=== PATIENT | female | born 1985 | race Caucasian/White ===

== ENCOUNTER → 2022-04-13 | Outpatient (REF) | payer OTHER ==
[~2022-04-13] MED LIST: IBUP200C25 PO; IRON65TA PO; MIRA3350 PO; ONETAB35 PO
== END ==
LOC: M LAB REF 16:44
PROVIDERS: ATTEND Physician Assistant Medical
DX: N39.0 Urinary tract infection, site not specified (principal)

== ENCOUNTER 2025-06-03 05:27 | Emergency (ER) | payer OTHER ==
[~2025-06-03] VITALS: Ht 154.9 cm; Wt 58.8 kg
[2025-06-03 07:30] VITALS: BP 115/64; TEMP 97.2; O2SAT 99
[2025-06-03] MEDS: KETOROLAC 60 MG/2 ML VIAL IM ONE (07:31)
== END 2025-06-03 07:49 | disposition home or self-care (01) ==
LOC: M ED 05:27
DX: S56.911A Strain of unspecified muscles, fascia and tendons at forearm level, right arm, initial encounter (principal); S73.102A Unspecified sprain of left hip, initial encounter; S00.81XA Abrasion of other part of head, initial encounter; S80.11XA Contusion of right lower leg, initial encounter; S80.12XA Contusion of left lower leg, initial encounter; W01.198A Fall on same level from slipping, tripping and stumbling with subsequent striking against other object, initial encounter; Z91.040 Latex allergy status; Z88.2 Allergy status to sulfonamides; Z88.6 Allergy status to analgesic agent; Z79.1 Long term (current) use of non-steroidal anti-inflammatories (NSAID); Z79.899 Other long term (current) drug therapy; Y92.9 Unspecified place or not applicable; Y93.01 Activity, walking, marching and hiking; Y99.9 Unspecified external cause status
CPT/HCPCS: 72110; 73080; 73090; 73502; 96372; 99284; J1885